=== PATIENT | male | born 1970 | race Caucasian/White ===

== ENCOUNTER 2019-05-30 17:37 | IRF | payer MEDICARE, MEDICAID, SELFPAY ==
--- NOTE | ~2019-05-30 | XR_ITS ---
EXAMINATION: XR chest 1V portable DATE: 05/31/2019 01:32 INDICATION: This of breath. Decreased level of consciousness. TECHNIQUE: frontal view of the chest was obtained. COMPARISON: None FINDINGS: Minimal biapical pleural-parenchymal scarring. No other airspace opacities, pleural effusion, pulmona ry edema or pneumothorax. The cardiomediastinal silhouette is normal. Visualized bones and soft tissu es are unremarkable. IMPRESSION: 1. No acute cardiopulmonary disease. Reviewed, dictated and finalized at location A. [facility]
[2019-05-30 17:35] VITALS: BMI 14.4
[2019-05-30 17:40] VITALS: BP 119/77; PULSE 112; RESP 18; TEMP 37.1; O2SAT 100
--- NOTE | 2019-05-30 20:14 | ADMGEN ---
This patient, Bradley Adkins, was admitted to [facility] Room 230-02. Patient/family oriented to hospital policies and general routines including ID bracelet, bed and alarms, visiting hours, pain management, procedures, bathroom and other care routines, personal items, smoking policy, room service/diet, and visiting hours. Valuables list has been completed. Information on how to activate the Rapid Response Team has been discussed. Patient/Family are encouraged to report perceived risks to care and to ask questions if they do not understand what they are told or what they should do.
[2019-05-30] MEDS: MIRTAZAPINE 30 MG TABLET PO (21:35)
[2019-05-30] MEDS: MORPHINE SULFATE 15 MG TABCR 30 MG PO (21:35)
[2019-05-30 21:43] VITALS: BP 94/68; PULSE 105; RESP 20; TEMP 36.9; O2SAT 99
[2019-05-31 00:23] LABS: Glucose Point of Care > 500 (65-105)
--- NOTE | 2019-05-31 00:35 | PC.NURSE ---
Pt midnight accucheck noted as HI . received order for stat glucose. lab called to come draw. awaiting results.
[2019-05-31 01:00] LABS: Glucose 615 mg/dL (75-110)
[2019-05-31 01:32] LABS: Alveolar/Arterial O2 Gradient 7.3 mmHg; Fractional Inspired Oxygen 21 %; HCO3 ABG 31.9 mEq/l (22.0-26.0); Oxygen Content ABG 11.8 %vol (16.0-22.0); Oxygen Saturation ABG 95.1 % (95.0-100.0); Oxyhemoglobin 92.2 % THb (90.0-100.0); PCO2 ABG 54.3 mmHg (35.0-45.0); PO2 ABG 77.4 mmHg (80.0-100.0); PO2 FiO2 Ratio Arterial Blood 3.69 %; pH ABG 7.387 (7.350-7.450)
[2019-05-31 01:33] LABS: Modified Allen's Test Pass; Site Drawn RIGHT RADIAL
[2019-05-31 01:34] LABS: Device ROOM AIR
[2019-05-31 01:49] LABS: Basophils Percent Auto 0.6 % (0.2-1.2); Eosinophils Absolute Auto 0.1 K/mm3 (0-0.3); Hematocrit 26.7 % (42.0-52.0); Immature Granulocyte Absolute 0.03 K/mm3 (0.00-0.031); Immature Granulocyte Percent A 0.6 % (0-0.5); Lymphocytes Percent Auto 16.2 % (18.3-44.2); Mean Corpuscular Hemoglobin 29.7 pg (26-34); Mean Corpuscular Volume 99.3 fl (80-100); Mean Platelet Volume 9.9 fl (7.4-10.4); Monocytes Absolute Auto 0.5 K/mm3 (0.1-0.6); Monocytes Percent Auto 10.7 % (2.6-8.5); Neutrophils Absolute Auto 3.5 K/mm3 (1.3-6.7); Neutrophils Percent Auto 69.9 % (45.5-73.1); Platelet Count Result 264 k/mm3 (150-375); Red Blood Count 2.69 M/mm3 (4.6-6.20); Red Cell Distribution Width 18.6 % (11.5-14.5)
[2019-05-31] MEDS: ALBUTEROL SULFATE (*SP) AEROSOL 1 PUFF 2 PUFF INHALATION (01:49)
[2019-05-31 01:51] LABS: Add Urine Microscopic? YES; Appearance Urine Clear (Clear); Bilirubin Urine Negative (Negative); Blood Urine Negative (Negative); Color Urine Straw (Yellow); Glucose Urine UA 3+ mg/dL (Negative); Ketones Urine Negative (Negative); Leukocyte Esterase Ur Negative LEU/UL (NEGATIVE); Nitrate Urine Negative (Negative); Protein Urine Negative (Negative); RBC Urine 0-2 /hpf (0-2); Specific Grav Ur 1.022 (1.001-1.035); Urobilinogen Urine Negative mg/dL (<2.0); WBC Urine 0-3 /hpf (0-3)
[2019-05-31 02:02] LABS: Lactic Acid Reflex 1.9 mmol/L (0.7-2.1)
[2019-05-31 02:09] LABS: Beta-Hydroxybutyrate/Acetoacetate 0.11 mmol/L (0.02-0.27)
[2019-05-31 02:12] LABS: Glucose Point of Care > 500 (65-105)
[2019-05-31 02:22] LABS: Blood Urea Nitrogen 21 mg/dL (9-20); Calcium 7.8 mg/dL (8.4-10.2); Carbon Dioxide 32 mmol/L (22-30); Chloride 92 mmol/L (98-107); Estimated CRCL calculation 90 ml/min; Estimated Glomerular Filt Rate > 60; Glucose 670 mg/dL (75-110); Magnesium 1.6 mg/dL (1.6-2.3); Phosphorus 4.1 mg/dL (2.5-4.5); Potassium 4.5 mmol/L (3.4-5.0); Sodium 131 mmol/L (137-145); Troponin I 0.029 ng/mL (0.000-0.034)
[2019-05-31] MEDS: SODIUM CHLORIDE 0.9% IV 1,000 ML 999 ML IV CONT (02:53)
--- NOTE | 2019-05-31 03:26 | PC.NURSE ---
Dr Pavon over to talk to staff regarding consult for patient. orders were entered per Dr Pavon's request for STAT ABG, troponin, lactic acid, cbc, bmp, phosporus, magnesium, beta-hydroxybutyrate, chest x ray, and UA with culture. a second critical glucose was called to floor while Dr Pavon here seeing pt. glucose was noted by lab at 670. iv was started and normal saline 500 mL bolus was started. Dr Pavon updated Dr Mcgee. Patient was moved to ICU bed 6 with a dx of hyperglycemia. Report was given to Leander HELLER. call placed to patient's spouse with no answer. message was left.
--- NOTE | 2019-05-31 18:03 | PC.NURSE ---
Patient received back to room 230 bed2 on 05/31/19 at [address] Mcgee notified of return, medications and treatment continued.
[2019-05-31 22:00] VITALS: BP 93/64; PULSE 88; RESP 17; TEMP 36.8; O2SAT 100
[2019-05-31] MEDS: MORPHINE SULFATE 15 MG TABCR 30 MG PO (22:17)
[2019-05-31] MEDS: MIRTAZAPINE 30 MG TABLET PO (22:19)
[2019-05-31] MEDS: GABAPENTIN 300 MG CAPSULE PO (22:19)
[2019-05-31 23:17] LABS: Glucose Point of Care 207 (65-105)
[2019-06-01 04:34] LABS: Glucose Point of Care 70 (65-105)
[2019-06-01 05:35] VITALS: BP 121/82; PULSE 78; RESP 18; TEMP 36.6; O2SAT 98
[2019-06-01 07:17] LABS: Glucose Point of Care 102 (65-105)
[2019-06-01 08:00] VITALS: PULSE 76; RESP 20; O2SAT 96
[2019-06-01] MEDS: GABAPENTIN 300 MG CAPSULE PO ×3 (09:56→16:43)
[2019-06-01] MEDS: PANTOPRAZOLE 40 MG TABLET PO (09:56)
[2019-06-01] MEDS: FERROUS SULFATE 324 MG TABLET PO (09:57)
[2019-06-01] MEDS: BISACODYL 5 MG TABLET EC PO (10:03)
[2019-06-01] MEDS: MORPHINE SULFATE 15 MG TABCR 30 MG PO ×2 (10:04→20:56)
[2019-06-01] MEDS: INSULIN GLARGINE (*BKC) 100 UNITS/ML 40 UNITS SUB-Q (10:08)
[2019-06-01 10:52] VITALS: BP 161/69; PULSE 74; RESP 21; TEMP 36.4; O2SAT 96
--- NOTE | 2019-06-01 10:55 | WPDREHABHP ---
H&P: HPI History of Present Illness Chief complaint: acute encephalopathy Narrative: Bradley Adkins is a 49 year old male HISTORY OF PRESENT ILLNESS: The patient's primary rehab impairment category is Miscellaneous /debility The etiologic diagnosis is status post hypoglycemia/coma I saw this patient [id number] on June 01, 2019 at 9:30 a.m. The patient is a 49-year-old white male with a past medical history of diabetes mellitus in the context of chronic alcoholic pancreatitis /insufficiency liver cirrhosis, gastroesophageal reflux disease grade D esophagitis with recurrent upper gastrointestinal bleed) chronic alcoholic pancreatitis, chronic obstructive pulmonary disease and hypertension who presented to local hospital after his found him unresponsive with blood glucose level of 20, he was recently admitted to the hospital from April 10 through April 14 for abdominal pain and vomiting. At this time he underwent an ERCP that revealed biliary ductal strictures and proximal dilatation. Mental stent was placed with plans for removal or exchange in 3 months. He was discharged home. Then he returned to the hospital on May 03 for increased abdominal pain and hyperglycemia. He was admitted for diabetic ketoacidosis with an initial blood glucose over 1000. He was placed on an insulin drip. He again was discharged home on May 18, 2019 despite recommendations for fci care. He then returned to the hospital and lumbar 2018 unresponsive and blood close of 20 as stated above. He was transferred to [facility] the same day and was admitted. Endocrinology was considered and consulted and they observe the patient blood glucoses difficult to manage because his carbohydrate intake is inconsistent due to his gastrointestinal issues. There isn't ideal regimen that works for him. They recommended starting him on Lantus 5 units b.i.d. and sliding scale NovoLog with blood glucose checks every 4 hours and recommended 150 gram of carbohydrates daily to be achieved with D5 solution. Endocrinology continue to follow him throughout his stay. And nasogastric tube was placed and he received supplemental nutrition this way and he was allowed and oral diet as tolerated. Palliative Care was consulted for pain management and his pain is now controlled on oral medications. He was transferred to the medical floor May 14, 2019. 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 his electrolytes are repeated as needed he did experience of fevers whether was no obvious source for infection. Chest x-ray was insignificant and the blood cultures were negative. His antibiotic regimen was de escalated to ceftriaxone and Flagyl for possible aspiration pneumonia. He completed a 5 day course of Augmentin and he has been afebrile. Repeat chest x-ray shows no infiltrates. The patient underwent a PEG tube placement on May 22, 2019 for a more permanent means of nutrition and blood glucose management. Tube feeding is at good with a goal which is O vital 1.2 at 50 cc/hour he is receiving an oral diabetic diet as well. His hypoglycemia has resolved the tube feeding. Endocrinology recommended NPH, 10 units b.i.d. at 7:00 a.m. and 7:00 p.m. and regular insulin 5 units b.i.d. at 7:00 a.m. and 7:00 p.m. as well as regular insulin but is sliding scale q.6 hours. If he is to be NPO for entities and he will need D5 and half normal saline at 125 cc/hour. The patient was discharged to our rehab on May 30, 2019 however had to be transferred to ICU because of the elevated sugars over close to 700 he was treated in our ICU overnight with the insulin drip and was rated 2 to come here when he came back yesterday the May 31, 2019 os in much better shape and much better electrolyte profile The patient is here and now working with therapy Therapy was initiated at the acute
[2019-06-01 12:15] LABS: Glucose Point of Care 100 (65-105)
[2019-06-01 12:58] VITALS: BMI 14.4
[2019-06-01 13:03] VITALS: PULSE 78
[2019-06-01] MEDS: NADOLOL 20 MG TABLET 40 MG PO (13:03)
[2019-06-01 14:00] VITALS: BP 117/80; PULSE 76; RESP 20; TEMP 36.1; O2SAT 96
--- NOTE | 2019-06-01 15:23 | PM.IMPN ---
Progress Note: A&P Assessment and Plan (1) Diabetes mellitus: Qualifiers: Diabetes mellitus type: type 2 Diabetes mellitus residential insulin use: with residential use Diabetes mellitus complication status: with hyperglycemia Qualified Code(s): E11.65 - Type 2 diabetes mellitus with hyperglycemia; Z79.4 - intermediate teacher (current) use of insulin Code(s): E11.9 - Type 2 diabetes mellitus without complications Status: Acute (2) S/P percutaneous endoscopic gastrostomy (PEG) tube placement: Code(s): Z93.1 - Gastrostomy status Status: Acute (3) Malnutrition: Code(s): E46 - Unspecified protein-calorie malnutrition Status: Acute (4) Tobacco dependence: Code(s): F17.200 - Nicotine dependence, unspecified, uncomplicated Status: Acute (5) Chronic pancreatitis: Code(s): K86.1 - Other chronic pancreatitis Status: Acute (6) H/O: HTN (hypertension): Code(s): Z86.79 - Personal history of other diseases of the circulatory system Status: Acute (7) GERD (gastroesophageal reflux disease): Code(s): K21.9 - Gastro-esophageal reflux disease without esophagitis Status: Acute (8) Depression: Code(s): F32.9 - Major depressive disorder, single episode, unspecified Status: Acute (9) COPD (chronic obstructive pulmonary disease): Code(s): J44.9 - Chronic obstructive pulmonary disease, unspecified Status: Acute (10) CHF (congestive heart failure): Code(s): I50.9 - Heart failure, unspecified Status: Acute (11) Alcoholic cirrhosis: Code(s): K70.30 - Alcoholic cirrhosis of liver without ascites Status: Acute Additional Plan Glucose reviewed on 06/01/2019. Glucose was 70 this morning. Glucose has been well controlled. We will back off the Lantus since this is probably too tight of control. Continue tube feedings. Keep GTube site clean. Oral diet as tolerated. Pain is controlled with current medications. No wheezing to suggest COPD exacerbation. Continue his other current medications. Will continue to follow along with you. Thank you so much for allowing me to be part of this patient's care. Subjective Interval history: Date of service: 06/01/19 49yo male here for rehab after extensive prolonged hospitalization and consulted for elevated glucose levels. Patient is walking 150 ft. Has chronic abdominal pain. Abdominal pain is well controlled with his current medications. Tolerating oral intake. No nausea or vomiting. He denies any chest pain or palpitations. Tolerating tube feedings. Exam Narrative: Exam Narrative: Gen -thin male in no acute distress who is nontoxic appearing sitting up in a chair Chest -few scattered rhonchi otherwise clear. CV - RRR S1/S2 Abd -soft. Mild epigastric tenderness. G-tube in place with mild erythema around the base. Ext -trace indy ankle and foot edema. Psych - Nml mood and affect Skin - Warm and dry Objective Data Vital Signs Vital Signs: Vital Signs - 24 hr 05/31/19 22:00 06/01/19 05:35 06/01/19 08:00 Temperature 98.3 F 97.9 F Pulse Rate 88 78 76 Respiratory Rate 17 18 20 Blood Pressure 93/64 L 121/82 Pulse Oximetry 100 98 96 06/01/19 13:03 06/01/19 14:00 Temperature 97.0 F L Pulse Rate 78 76 Respiratory Rate 20 Blood Pressure 117/80 Pulse Oximetry 96 Intake/Output Intake/Output: Intake & Output 05/29/19 05/30/19 05/31/19 06/01/19 23:59 23:59 23:59 23:59 Intake Total 500 440 Balance 500 440 Meds/Results Medications: Active Medications Generic Name Dose Route Start Last Admin Trade Name Freq PRN Reason Stop Dose Admin Al Hydrox/Mg Hydrox/Simethicone 30 ml 05/31/19 18:36 Mylanta PO Q4H PRN Heartburn Albuterol 2 puff 05/31/19 20:00 Proventil Hfa INHALATION QIDRT TREASURE Albuterol 2 puff 05/31/19 18:38 Proventil Hfa INHALATION QIDRT PRN Shortness Of Breath Lipase/Protease/Amyl
[2019-06-01 17:20] LABS: Glucose Point of Care 85 (65-105)
[2019-06-01] MEDS: ONDANSETRON HCL ODT 4 MG TABLET PO (17:46)
[2019-06-01] MEDS: MIRTAZAPINE 30 MG TABLET PO (20:55)
[2019-06-01 21:07] LABS: Glucose Point of Care 168 (65-105)
[2019-06-01] MEDS: ALBUTEROL SULFATE (*SP) AEROSOL 1 PUFF 2 PUFF INHALATION (21:38)
[2019-06-01 22:00] VITALS: BP 96/66; PULSE 84; RESP 17; TEMP 36.9; O2SAT 100
[2019-06-02 06:00] VITALS: BP 90/65; PULSE 70; RESP 18; TEMP 36.2; O2SAT 100
[2019-06-02] MEDS: GLUCOSE ORAL GEL 15 GM OF GLUCSE IN 37.5 GM TUBE PO (06:09)
[2019-06-02 06:55] LABS: Glucose Point of Care 29 (65-105)
[2019-06-02 06:56] LABS: Glucose Point of Care 44 (65-105)
[2019-06-02 07:39] LABS: Glucose Point of Care 60 (65-105)
[2019-06-02] MEDS: ALBUTEROL SULFATE (*SP) AEROSOL 1 PUFF 2 PUFF INHALATION ×2 (08:46→20:56)
--- NOTE | 2019-06-02 09:01 | PC.NURSE ---
Urine cx and MRSA nare swab are both negative. Dr. Priya hurst.
[2019-06-02 10:27] VITALS: PULSE 70
[2019-06-02] MEDS: GABAPENTIN 300 MG CAPSULE PO ×3 (10:27→18:07)
[2019-06-02] MEDS: FERROUS SULFATE 324 MG TABLET PO (10:27)
[2019-06-02] MEDS: NADOLOL 20 MG TABLET 40 MG PO (10:27)
[2019-06-02] MEDS: PANTOPRAZOLE 40 MG TABLET PO (10:28)
[2019-06-02] MEDS: MORPHINE SULFATE 15 MG TABCR 30 MG PO ×2 (10:31→20:09)
[2019-06-02] MEDS: BISACODYL 5 MG TABLET EC PO (10:32)
[2019-06-02] MEDS: INSULIN GLARGINE (*BKC) 100 UNITS/ML 20 UNITS SUB-Q (10:32)
[2019-06-02 10:46] LABS: Glucose Point of Care 203 (65-105)
--- NOTE | 2019-06-02 11:22 | PM.IMPN ---
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) use of insulin Code(s): E11.9 - Type 2 diabetes mellitus without complications Status: Acute (2) S/P percutaneous endoscopic gastrostomy (PEG) tube placement: Code(s): Z93.1 - Gastrostomy status Status: Acute (3) Malnutrition: Code(s): E46 - Unspecified protein-calorie malnutrition Status: Acute (4) Tobacco dependence: Code(s): F17.200 - Nicotine dependence, unspecified, uncomplicated Status: Acute (5) Chronic pancreatitis: Code(s): K86.1 - Other chronic pancreatitis Status: Acute (6) H/O: HTN (hypertension): Code(s): Z86.79 - Personal history of other diseases of the circulatory system Status: Acute (7) GERD (gastroesophageal reflux disease): Code(s): K21.9 - Gastro-esophageal reflux disease without esophagitis Status: Acute (8) Depression: Code(s): F32.9 - Major depressive disorder, single episode, unspecified Status: Acute (9) COPD (chronic obstructive pulmonary disease): Code(s): J44.9 - Chronic obstructive pulmonary disease, unspecified Status: Acute (10) CHF (congestive heart failure): Code(s): I50.9 - Heart failure, unspecified Status: Acute (11) Alcoholic cirrhosis: Code(s): K70.30 - Alcoholic cirrhosis of liver without ascites Status: Acute Additional Plan 06/01/19 -- Glucose reviewed on 06/01/2019. Glucose was 70 this morning. Glucose has been well controlled. We will back off the Lantus since this is probably too tight of control. Continue tube feedings. Keep GTube site clean. Oral diet as tolerated. Pain is controlled with current medications. No wheezing to suggest COPD exacerbation. Continue his other current medications. Will continue to follow along with you. Thank you so much for allowing me to be part of this patient's care. 06/02/19 -- Glucose reviewed on 06/02/19. Glucose dropped to 29 this morning. Will cut Lantus back to 20U and give today only if glucose climbs >150 (RN notified). He was on NPH 15U BID and Regular 5U BID on admission. Continue to adjust insulin regiment as needed. BP soft so will place parameters on the Nadolol. Subjective Interval history: Date of service: 06/02/19 49yo male here for rehab after extensive prolonged hospitalization and consulted for elevated glucose levels. Patient's glucose dropped to 29 this morning. Patient states he was up and just felt weak; no diaphoresis or other symptoms. Eating well. Glucose improved with treatment. He is walking up to 150 feet x2. No CP or SOB. Tolerating tube feedings. Exam Narrative: Exam Narrative: Gen - NARD sitting up in a chair Chest - CTA bilat, nml RR CV - RRR S1/S2 Abd -soft. mild abd pain to palpation, +BS. G-tube dressing clean and dry. Ext -no pedal edema Psych - Nml mood and affect Skin - Warm and dry Objective Data Vital Signs Vital Signs: Vital Signs - 24 hr 06/01/19 13:03 06/01/19 14:00 06/01/19 22:00 Temperature 97.0 F L 98.5 F Pulse Rate 78 76 84 Respiratory Rate 20 17 Blood Pressure 117/80 96/66 L Pulse Oximetry 96 100 06/02/19 06:00 06/02/19 10:27 Temperature 97.2 F L Pulse Rate 70 70 Respiratory Rate 18 Blood Pressure 90/65 L Pulse Oximetry 100 Intake/Output Intake/Output: Intake & Output 05/30/19 05/31/19 06/01/19 06/02/19 23:59 23:59 23:59 23:59 Intake Total 500 1640 200 Balance 500 1640 200 Meds/Results Medications: Active Medications Generic Name Dose Route Start Last Admin Trade Name Freq PRN Reason Stop Dose Admin Al Hydrox/Mg Hydrox/Simethicone 30 ml 05/31/19 18:36 M
--- NOTE | 2019-06-02 12:23 | RPD ---
INDIVIDUALIZED PLAN OF CARE FOR Bradley Adkins Brief Synthesis of Pre-Admission Screen, Post-Admission Evaluation and Therapy Evaluations: The patient presents to rehab with hypoglycemia with coma. The patient requires physician services for medical oversight, management of post-op complications in setting of present comorbidities, uncontrolled diabetes mellitus, and pain management. The patient requires nursing services for anticoagulation therapy, diabetes training, DVT prophylactics, infection protection, medication management and education, pressure relief, and wound care. Comorbidities include: PEG tube placement, re-feeding syndrome, hypophosphatemia, hypomagnesmia, hypokalemia, hyponatremia, anemia, aspiration pneumonia, pancreatitis, acute pain, pancreatic insufficiency, cirrhosis, esophagitis, splenic vein thrombosis, depression, common bile duct stricture, diabetes mellitus, severe protein calorie malnutrition, fever . Deficits include:ADLs, Balance, Endurance, Family Training/Education, Mobility, Pain Management, ROM, Safety, Strength,Transfers Wood Room Hand/Case Management for: Discharge Planning and Patient/Family Counseling Physical Therapy: 5 days per week for 90 minutes. Treatments may include: Therapeutic Exercise, Gait Training, Neuromuscular Re-education, Transfer Training, Community Reintegration, Bed Mobility, Patient/Family Education, Wheelchair Mobility Group Therapy/Concurrent Therapy Rationales: -Improve attention span during functional activities in a distracted environment. -Enhance problem solving and/or adequate judgment skills during functional activities in a distracted environment. -Promote increased safety awareness in a distracted environment to reduce fall risk with functional tasks, transfers, and ambulation to allow a more safe, self-sufficient return to the home environment. -Improve dynamic balance skills to promote safety and independence with functional activities in a distracted environment for maximum gain. Occupational Therapy: 5 days per week for 90 minutes. Treatments may include: Therapeutic Exercise, Therapeutic Activity, Cognitive Training, Self-Care Transfer Training, Community Reintegration, Home Management, Patient/Family Education, Wheelchair Mobility Training, Energy Conservation Training Group Therapy/Concurrent Therapy Rationales: -Allow therapist to observe and teach generalization and carry-over of skills learned in individual therapy. -Enhance problem solving and sequencing skills during therapeutic activities in a distracted environment. -Promote increased safety awareness in a realistic setting to reduce fall risk with functional tasks due to visual and verbal distractions. -Increase functional level with ADLs, ADL transfers and use of adaptive equipment through therapeutic activities with others while promoting safety to allow a more safe, self-sufficient return home. Medical Prognosis: Good Anticipated Length of Stay: 10 days Rehab Goals: Eating Goal: 06-Independent Oral Hygiene Goal: 06-Independent Toileting Hygiene Goal: 06-Independent Shower/Bathe Self Goal: 06-Independent Upper Body Dressing Goal: 06-Independent Lower Body Dressing Goal: 06-Independent Putting On/Taking Off Footwear Goal: 06-Independent Rolling Left and Right Goal: 06-Independent Sit to Lying Goal: 06-Independent Lying to Sitting on Side of Bed Goal: 06-Independent Sit to Stand Goal: 06-Independent Chair/[id number]-dh-[id number] Transfer Goal: 06-Independent Toilet Transfer Goal: 06-Independent Car Transfer Goal: 06-Independent Walk 10' Goal: 06-Independent Walk 50' with Two Turns Goal: 06-Independent Walk 150' Goal: 06-Independent Walk 10' on Uneven Surface Goal: 06-Independent 1 Step (Curb) Goal: 06-Independent 4 Steps Goal: 06-Independent 12 Steps Goal Score: 06-Independent Picking Up Object Goal: 06-Independent Wheel 50' with Two Turns Score: 06-Independent Wheel 150' Goal: 06-Independent Anticipated discharge de
[2019-06-02] MEDS: ONDANSETRON HCL ODT 4 MG TABLET PO (13:09)
[2019-06-02 13:19] LABS: Glucose Point of Care 74 (65-105)
--- NOTE | 2019-06-02 13:31 | WPDNEURORHBP ---
Subjective Interval history: patient has had hypoglycemia earlier today without any significant consequences the hospitalist is following have made changes in his insulin requirement, he is a brittle diabetic and has sugars have been going all over the board and according to endocrinology from the other hospital there is no regimen which perfectly fits his needs because of his pancreatic insufficiency Review of Systems Review of Systems: All systems reviewed & are unremarkable except as noted in HPI and below Functional Status Ambulation Ability Ability to Ambulate 10 Feet: Standby Assistance Ability to Ambulate 50 Feet With 2 Turns: Standby Assistance Ability to Ambulate 150 Feet: Standby Assistance Ambulation Assistive Devices: Walker, Wheeled Transfers Ability Ability to Transfer In/Out of Chair: Independent Exam Const: General: comfortable and no acute distress HENMT: Other: normal Eyes: General: appearance normal, both eyes and all related structures Neck: Neck: supple and no JVD Resp: Effort & Inspection: normal respiratory effort Auscultation: clear to auscultation bilaterally Cardio: Rate: regular rate Rhythm: regular rhythm GI: GI Palp: Yes soft Percussion: Yes normal to percussion Auscultation: normal bowel sounds : Male General Exam: Yes normal external exam Skin: General skin exam: normal color and no rashes or lesions noted Neuro: Other: generalized weakness with evidence of peripheral neuropathy needing assistance in all the activities of daily living Extrem: General: normal to inspection and normal exam except as noted Objective Data Vital Signs Vital Signs: Vital Signs - 24 hr 06/01/19 14:00 06/01/19 22:00 06/02/19 06:00 Temperature 36.1 C L 36.9 C 36.2 C L Pulse Rate 76 84 70 Respiratory Rate 20 17 18 Blood Pressure 117/80 96/66 L 90/65 L Pulse Oximetry 96 100 100 06/02/19 10:27 Temperature Pulse Rate 70 Respiratory Rate Blood Pressure Pulse Oximetry Intake/Output Intake/Output: Intake & Output 05/30/19 05/31/19 06/01/19 06/02/19 23:59 23:59 23:59 23:59 Intake Total 500 1640 200 Balance 500 1640 200 Meds/Results Medications: Active Medications Generic Name Dose Route Start Last Admin Trade Name Freq PRN Reason Stop Dose Admin Al Hydrox/Mg Hydrox/Simethicone 30 ml 05/31/19 18:36 Mylanta PO Q4H PRN Heartburn Albuterol 2 puff 12/11/19 18:38 Proventil Hfa INHALATION QIDRT PRN Shortness Of Breath Albuterol 2 puff 06/02/19 10:52 Proventil Hfa INHALATION QIDRT PRN Shortness Of Breath Or Wheezing Lipase/Protease/Amylase 1 cap 05/31/19 18:[address] 12,000 Units Capsule PO PRN PRN snacks and meals Bisacodyl 5 mg 06/01/19 09:00 06/02/19 10:32 Dulcolax Tab PO 5 mg QAM TREASURE Administration Budesonide/Formoterol Fumarate 2 puff 05/31/19 20:00 06/02/19 08:46 Symbicort 160-4.5 Mcg (*Sp) Inhaler INHALATION 2 puff Q12HRT TREASURE Administration Dextrose 12.5 gm 05/31/19 19:02 Dextrose 50% Syringe IV PUSH PRN PRN Hypoglycemia Protocol Ergocalciferol 50,000 unit 06/06/19 09:00 Drisdol PO Tu@0900 TREASURE Ferrous Sulfate 324 mg 06/01/19 08:00 06/02/19 10:27 Ferrous Sulfate PO 324 mg DAILY@0800 TREASURE Administration Gabapentin 300 mg 05/31/19 21:25 06/02/19 13:09 Neurontin PO 300 mg TID TREASURE Administration Glucagon 1 mg 05/31/19 19:02 Glucagon For Inj IM PRN PRN Hypoglycemia Protocol Glucose 15 gm 05/31/19 19:02 06/02/19 06:09 Glutose 15 PO 15 gm PRN PRN Administration Hypoglycemia Protocol Dextrose 1,000 mls @ 100 mls/hr 05/31/19 19:02 Dextrose 5% 1,000 Ml IVPB PRN PRN Hypoglycemia Protocol Insulin Glargine 20 units 06/02/19 09:00 06/02/19 10:32 Lantus SUB-Q 20 units DAILY TREASURE Administration Mirtazapine 30 mg 05/31/19 21:30 06/01/19 20:55 Remeron
--- NOTE | 2019-06-02 13:49 | PCDIET ---
Nutrition Follow-Up Complete: Nutrition Diagnosis: Underweight related to history of significant weight loss as evidenced by BMI of 14.4. Nutrition Goal: Intakes >75%, tube feeding tolerance, glucose levels <150mg/dL Goal partly met. Patient tolerating Glucerna 1.2 tube feedings at 40mL/hr and eating 75-100% of meals + Glucerna Shakes TID. Glucose was 203mg/dL earlier this date. Last recorded weight is 43 kg. Recommend obtaining daily weights. Bowel Motility: Last documented bowel movement on 05/30/19. Labs Reviewed: Glu (203) Meds Noted: Creon, Dulcolax, Drisdol, Ferrous Sulfate, Lantus, Roxicodone, Protonix Additional Notes: Patient with hypoglycemia earlier today; Lantus being decreased. No documented skin breakdown. Patient stated surgeon previously recommended small, frequent meals. Encouraged patient to request snacks between meals or save Glucerna Shake for between meals. Discussed this will likely optimize glucose levels, as well. Tube feedings via jejunostomy. No recommended diet changes at this time due to hypoglycemia. Will continue to monitor with same goals. Nutrition Monitoring and Evaluation: Follow up every Wednesday/Wednesday.
[2019-06-02 14:00] VITALS: BP 90/64; PULSE 81; RESP 75; TEMP 37; O2SAT 100
[2019-06-02 18:15] LABS: Glucose Point of Care 86 (65-105)
[2019-06-02] MEDS: MIRTAZAPINE 30 MG TABLET PO (20:10)
[2019-06-02 22:00] VITALS: BP 79/45; PULSE 83; RESP 16; TEMP 36.8; O2SAT 94
[2019-06-02 22:30] LABS: Glucose Point of Care 109 (65-105)
[2019-06-03 00:19] LABS: Glucose Point of Care 47 (65-105)
[2019-06-03 00:51] LABS: Glucose Point of Care 44 (65-105)
[2019-06-03 01:26] LABS: Glucose Point of Care 40 (65-105)
[2019-06-03 01:31] LABS: Glucose Point of Care 51 (65-105)
[2019-06-03 02:00] LABS: Glucose Point of Care 90 (65-105)
[2019-06-03 05:12] LABS: Glucose Point of Care 147 (65-105)
[2019-06-03 05:58] VITALS: BP 72/47; PULSE 78; RESP 16; TEMP 36; O2SAT 95
[2019-06-03 06:43] LABS: Glucose Point of Care 201 (65-105)
[2019-06-03 07:08] VITALS: BP 95/60
[2019-06-03] MEDS: PANTOPRAZOLE 40 MG TABLET PO (09:43)
[2019-06-03] MEDS: FERROUS SULFATE 324 MG TABLET PO (09:43)
[2019-06-03] MEDS: GABAPENTIN 300 MG CAPSULE PO ×3 (09:43→16:32)
[2019-06-03] MEDS: MORPHINE SULFATE 15 MG TABCR 30 MG PO ×2 (09:50→20:57)
[2019-06-03] MEDS: BISACODYL 5 MG TABLET EC PO (09:50)
[2019-06-03] MEDS: INSULIN GLARGINE (*BKC) 100 UNITS/ML 20 UNITS SUB-Q (09:50)
[2019-06-03 11:02] LABS: Glucose Point of Care 201 (65-105)
--- NOTE | 2019-06-03 13:35 | PM.IMPN ---
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 Diabetes mellitus type: type 2 Qualified Code(s): E11.65 - Type 2 diabetes mellitus with hyperglycemia; Z79.4 - middle or intermediate school principal (current) use of insulin Code(s): E11.9 - Type 2 diabetes mellitus without complications Status: Acute (2) S/P percutaneous endoscopic gastrostomy (PEG) tube placement: Code(s): Z93.1 - Gastrostomy status Status: Acute (3) Malnutrition: Code(s): E46 - Unspecified protein-calorie malnutrition Status: Acute (4) Tobacco dependence: Code(s): F17.200 - Nicotine dependence, unspecified, uncomplicated Status: Acute (5) Chronic pancreatitis: Code(s): K86.1 - Other chronic pancreatitis Status: Acute (6) H/O: HTN (hypertension): Code(s): Z86.79 - Personal history of other diseases of the circulatory system Status: Acute (7) GERD (gastroesophageal reflux disease): Code(s): K21.9 - Gastro-esophageal reflux disease without esophagitis Status: Acute (8) Depression: Code(s): F32.9 - Major depressive disorder, single episode, unspecified Status: Acute (9) COPD (chronic obstructive pulmonary disease): Code(s): J44.9 - Chronic obstructive pulmonary disease, unspecified Status: Acute (10) CHF (congestive heart failure): Code(s): I50.9 - Heart failure, unspecified Status: Acute (11) Alcoholic cirrhosis: Code(s): K70.30 - Alcoholic cirrhosis of liver without ascites Status: Acute Additional Plan 06/01/19 -- Glucose reviewed on 06/01/2019. Glucose was 70 this morning. Glucose has been well controlled. We will back off the Lantus since this is probably too tight of control. Continue tube feedings. Keep GTube site clean. Oral diet as tolerated. Pain is controlled with current medications. No wheezing to suggest COPD exacerbation. Continue his other current medications. Will continue to follow along with you. Thank you so much for allowing me to be part of this patient's care. 06/02/19 -- Glucose reviewed on 06/02/19. Glucose dropped to 29 this morning. Will cut Lantus back to 20U and give today only if glucose climbs >150 (RN notified). He was on NPH 15U BID and Regular 5U BID on admission. Continue to adjust insulin regiment as needed. BP soft so will place parameters on the Nadolol. 06/03/19 -- Glucose reviewed on 06/03/19. Will stop lantus and change to mornng Levemir which will wear off before bedtime. Hold Nadolol. May need to cut back pain meds if BP remains soft. Subjective Interval history: Date of service: 06/03/19 49yo male here for rehab after extensive prolonged hospitalization and consulted for elevated glucose levels. Patient's glucose dropped to 40 this morning at 1am. BP dropped this morning to 72/47. Patietn felt weak, lightheaded and fatigued. He has been eating well. No issues tolerating the TF although he feels full often. Exam Narrative: Exam Narrative: Gen - NARD sitting up in a chair Chest - distant BS CV - RRR S1/S2 Abd -soft. ND. GT site dressing with small yellowish stain Ext -no pedal edema Psych - Nml mood and affect Skin - Warm and dry Objective Data Vital Signs Vital Signs: Vital Signs - 24 hr 06/02/19 14:00 06/02/19 22:00 06/03/19 05:58 Temperature 98.6 F 98.3 F 96.8 F L Pulse Rate 81 83 78 Respiratory Rate 75 H 16 16 Blood Pressure 90/64 L 79/45 L 72/47 L Pulse Oximetry 100 94 95 06/03/19 07:08 Temperature Pulse Rate Respiratory Rate Blood Pressure 95/60 L Pulse Oximetry Intake/Output Intake/Output: Intake & Output 05/31/19 06/01/19 06/02/19 06/03/19 23:59 23:59 23:59 23:59 Intake Total 500 1640 680 480 Balance 500 1640 680 480 Meds/Results Medications: Active Medications Generic Name Dose Ro
[2019-06-03 14:00] VITALS: BP 104/67; PULSE 76; RESP 17; TEMP 36.6; O2SAT 100
--- NOTE | 2019-06-03 16:32 | WPDNEURORHBP ---
Subjective Interval history: apart from the fact that the patient's diabetic status remains at basis poorly controlled which is being followed by our colleague from the hospital team patient's encephalopathy and generalized weakness is improved Review of Systems Review of Systems: All systems reviewed & are unremarkable except as noted in HPI and below Functional Status Ambulation Ability Ability to Ambulate 10 Feet: Contact Guard Ability to Ambulate 50 Feet With 2 Turns: Contact Guard Ability to Ambulate 150 Feet: Contact Guard Ambulation Assistive Devices: Walker, Wheeled Transfers Ability Ability to Transfer In/Out of Chair: Independent Exam Const: General: comfortable and no acute distress HENMT: Ears: TM's normal bilaterally Eyes: General: appearance normal, both eyes and all related structures Neck: Neck: supple and no JVD Resp: Effort & Inspection: normal respiratory effort Auscultation: clear to auscultation bilaterally Cardio: Rate: regular rate Rhythm: regular rhythm GI: GI Palp: Yes soft Auscultation: normal bowel sounds Skin: General skin exam: normal color and no rashes or lesions noted Neuro: Other: encephalopathy in general weakness is improving Extrem: General: normal to inspection and normal exam except as noted Objective Data Vital Signs Vital Signs: Vital Signs - 24 hr 06/02/19 22:00 06/03/19 05:58 06/03/19 07:08 Temperature 36.8 C 36.0 C L Pulse Rate 83 78 Respiratory Rate 16 16 Blood Pressure 79/45 L 72/47 L 95/60 L Pulse Oximetry 94 95 06/03/19 14:00 Temperature 36.6 C Pulse Rate 76 Respiratory Rate 17 Blood Pressure 104/67 Pulse Oximetry 100 Intake/Output Intake/Output: Intake & Output 05/31/19 06/01/19 06/02/19 06/03/19 23:59 23:59 23:59 23:59 Intake Total 500 1640 1580 930 Balance 500 1640 1580 930 Meds/Results Medications: Active Medications Generic Name Dose Route Start Last Admin Trade Name Freq PRN Reason Stop Dose Admin Al Hydrox/Mg Hydrox/Simethicone 30 ml 05/31/19 18:36 Mylanta PO Q4H PRN Heartburn Albuterol 2 puff 05/31/19 18:38 06/02/19 20:56 Proventil Hfa INHALATION 2 puff QIDRT PRN Administration Shortness Of Breath Albuterol 2 puff 06/02/19 10:52 Proventil Hfa INHALATION QIDRT PRN Shortness Of Breath Or Wheezing Lipase/Protease/Amylase 1 cap 05/31/19 18:[address] 12,000 Units Capsule PO PRN PRN snacks and meals Bisacodyl 5 mg 06/01/19 09:00 06/03/19 09:50 Dulcolax Tab PO 5 mg QAM TREASURE Administration Budesonide/Formoterol Fumarate 2 puff 05/31/19 20:00 06/03/19 08:07 Symbicort 160-4.5 Mcg (*Sp) Inhaler INHALATION 2 puff Q12HRT TREASURE Administration Dextrose 12.5 gm 05/31/19 19:02 Dextrose 50% Syringe IV PUSH PRN PRN Hypoglycemia Protocol Ergocalciferol 50,000 unit 06/06/19 09:00 Drisdol PO Tu@0900 TREASURE Ferrous Sulfate 324 mg 06/01/19 08:00 06/03/19 09:43 Ferrous Sulfate PO 324 mg DAILY@0800 TREASURE Administration Gabapentin 300 mg 05/31/19 21:25 06/03/19 16:32 Neurontin PO 300 mg TID TREASURE Administration Glucagon 1 mg 05/31/19 19:02 Glucagon For Inj IM PRN PRN Hypoglycemia Protocol Glucose 15 gm 05/31/19 19:02 06/02/19 06:09 Glutose 15 PO 15 gm PRN PRN Administration Hypoglycemia Protocol Dextrose 1,000 mls @ 100 mls/hr 05/31/19 19:02 Dextrose 5% 1,000 Ml IVPB PRN PRN Hypoglycemia Protocol Insulin Detemir 10 units 06/04/19 09:00 Levemir SUB-Q QAM TREASURE Mirtazapine 30 mg 05/31/19 21:30 06/02/19 20:10 Remeron PO 30 mg HS TREASURE Administration Morphine Sulfate 30 mg 05/31/19 21:00 06/03/19 09:50 Ms Contin PO 30 mg Q12HR TREASURE Administration Nadolol 40 mg 06/01/19 09:00 06/02/19 10:27 Corgard PO 40 mg QAM TREASURE Administration Nicotine 1 patch 05/31/19 19:10 06/03/19 09:47 Aaron Wilder
[2019-06-03 16:53] LABS: Glucose Point of Care 183 (65-105)
[2019-06-03] MEDS: MIRTAZAPINE 30 MG TABLET PO (20:57)
[2019-06-03 22:00] VITALS: BP 86/56; PULSE 84; RESP 20; TEMP 37; O2SAT 100
[2019-06-03 22:28] LABS: Glucose Point of Care 203 (65-105)
[2019-06-04 02:37] LABS: Glucose Point of Care 144 (65-105)
[2019-06-04 06:00] VITALS: BP 86/57; PULSE 75; RESP 16; TEMP 36.4; O2SAT 100
[2019-06-04 06:51] LABS: Glucose Point of Care 78 (65-105)
[2019-06-04] MEDS: GABAPENTIN 300 MG CAPSULE PO ×3 (09:39→18:31)
[2019-06-04] MEDS: FERROUS SULFATE 324 MG TABLET PO (09:39)
[2019-06-04] MEDS: PANTOPRAZOLE 40 MG TABLET PO (09:40)
[2019-06-04] MEDS: BISACODYL 5 MG TABLET EC PO (09:43)
[2019-06-04] MEDS: MORPHINE SULFATE 15 MG TABCR 30 MG PO ×2 (09:43→21:06)
[2019-06-04] MEDS: INSULIN DETEMIR 100 UNITS/ML 10 UNITS SUB-Q (10:01)
[2019-06-04 11:46] LABS: Glucose Point of Care 311 (65-105)
[2019-06-04 14:00] VITALS: BP 103/61; PULSE 77; RESP 16; TEMP 36.6; O2SAT 100
--- NOTE | 2019-06-04 15:53 | PM.IMPN ---
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 of insulin Code(s): E11.9 - Type 2 diabetes mellitus without complications Status: Acute (2) S/P percutaneous endoscopic gastrostomy (PEG) tube placement: Code(s): Z93.1 - Gastrostomy status Status: Acute (3) Malnutrition: Code(s): E46 - Unspecified protein-calorie malnutrition Status: Acute (4) Tobacco dependence: Code(s): F17.200 - Nicotine dependence, unspecified, uncomplicated Status: Acute (5) Chronic pancreatitis: Code(s): K86.1 - Other chronic pancreatitis Status: Acute (6) H/O: HTN (hypertension): Code(s): Z86.79 - Personal history of other diseases of the circulatory system Status: Acute (7) GERD (gastroesophageal reflux disease): Code(s): K21.9 - Gastro-esophageal reflux disease without esophagitis Status: Acute (8) Depression: Code(s): F32.9 - Major depressive disorder, single episode, unspecified Status: Acute (9) COPD (chronic obstructive pulmonary disease): Code(s): J44.9 - Chronic obstructive pulmonary disease, unspecified Status: Acute (10) CHF (congestive heart failure): Code(s): I50.9 - Heart failure, unspecified Status: Acute (11) Alcoholic cirrhosis: Code(s): K70.30 - Alcoholic cirrhosis of liver without ascites Status: Acute Additional Plan 06/01/19 -- Glucose reviewed on 06/01/2019. Glucose was 70 this morning. Glucose has been well controlled. We will back off the Lantus since this is probably too tight of control. Continue tube feedings. Keep GTube site clean. Oral diet as tolerated. Pain is controlled with current medications. No wheezing to suggest COPD exacerbation. Continue his other current medications. Will continue to follow along with you. Thank you so much for allowing me to be part of this patient's care. 06/02/19 -- Glucose reviewed on 06/02/19. Glucose dropped to 29 this morning. Will cut Lantus back to 20U and give today only if glucose climbs >150 (RN notified). He was on NPH 15U BID and Regular 5U BID on admission. Continue to adjust insulin regiment as needed. BP soft so will place parameters on the Nadolol. 06/03/19 -- Glucose reviewed on 06/03/19. Will stop lantus and change to mornng Levemir which will wear off before bedtime. Hold Nadolol. May need to cut back pain meds if BP remains soft. 06/04/19 --glucose reviewed on 06/04/2019. Glucose stable overnight. Glucose higher today so will advance the Levemir that he gets once in the morning. Will advance slowly and continue to monitor frequently. Nadolol on hold. Monitor blood pressure closely. May need to wean narcotics. Subjective Interval history: Date of service: 06/04/19 49yo male here for rehab after extensive prolonged hospitalization and consulted for elevated glucose levels. No issues overnight. Blood pressure soft but patient was asymptomatic. Glucose elevated but with wide fluctuation. No hypoglycemic events. He did have an episode of urine incontinence but this is not uncommon for him. Normal bowel movements. Eating well. Exam Narrative: Exam Narrative: Gen - NARD lying in bed Chest -clear to auscultation bilaterally. Normal respiratory rate. CV - RRR S1/S2 Abd -soft. ND. GT site dressing is clean, dry and intact Ext -trace edema noted in feet. Psych - Nml mood and affect; in good spirits Skin - Warm and dry Objective Data Vital Signs Vital Signs: Vital Signs - 24 hr 06/03/19 22:00 06/04/19 06:00 06/04/19 14:00 Temperature 98.6 F 97.6 F 97.8 F Pulse Rate 84 75 77 Respiratory Rate 20 16 16 Blood Pressure 86/56 L
[2019-06-04 17:01] LABS: Glucose Point of Care 295 (65-105)
[2019-06-04] MEDS: MIRTAZAPINE 30 MG TABLET PO (21:06)
[2019-06-04 21:25] VITALS: BP 92/61; PULSE 87; RESP 16; TEMP 36.7; O2SAT 96
[2019-06-04 21:26] LABS: Glucose Point of Care 254 (65-105)
[2019-06-05 01:46] LABS: Glucose Point of Care 332 (65-105)
[2019-06-05 01:51] VITALS: BP 98/56
[2019-06-05 04:45] LABS: Hematocrit 27.2 % (42.0-52.0); Hemoglobin 8.5 g/dL (14.0-18.0); Mean Corpuscular HGB Conc 31.3 g/dl (32-36); Mean Corpuscular Hemoglobin 30.2 pg (26-34); Mean Corpuscular Volume 96.8 fl (80-100); Mean Platelet Volume 9.2 fl (7.4-10.4); Platelet Count Result 199 k/mm3 (150-375); Red Blood Count 2.81 M/mm3 (4.6-6.20); Red Cell Distribution Width 18.2 % (11.5-14.5)
[2019-06-05 05:06] LABS: Blood Urea Nitrogen 12 mg/dL (9-20); Calcium 8.1 mg/dL (8.4-10.2); Carbon Dioxide 28 mmol/L (22-30); Estimated CRCL calculation 76 ml/min; Estimated Glomerular Filt Rate > 60; Glucose 302 mg/dL (75-110); Sodium 133 mmol/L (137-145)
[2019-06-05 05:45] LABS: Chloride 99 mmol/L (98-107); Potassium 4.1 mmol/L (3.4-5.0)
[2019-06-05 06:00] VITALS: BP 99/69; PULSE 76; RESP 20; TEMP 36.3; O2SAT 98
[2019-06-05 07:28] LABS: Glucose Point of Care 227 (65-105)
[2019-06-05] MEDS: FERROUS SULFATE 324 MG TABLET PO (09:22)
[2019-06-05] MEDS: GABAPENTIN 300 MG CAPSULE PO ×3 (09:23→17:35)
[2019-06-05] MEDS: MORPHINE SULFATE 15 MG TABCR 30 MG PO ×2 (09:23→20:15)
[2019-06-05] MEDS: INSULIN DETEMIR 100 UNITS/ML 14 UNITS SUB-Q (09:23)
[2019-06-05] MEDS: BISACODYL 5 MG TABLET EC PO (09:23)
[2019-06-05] MEDS: PANTOPRAZOLE 40 MG TABLET PO (09:24)
--- NOTE | 2019-06-05 09:31 | PCDIET ---
RN phoned re: increased insulin requirements and possible tube feeding adjustment. Recommend reducing Glucerna 1.2 to 10 hours overnight to promote glucose control, given good oral intake throughout the day (75-100% of most meals). Once patient achieving weight gain, may consider discontinuing tube feedings altogether.
--- NOTE | 2019-06-05 11:18 | PM.IMPN ---
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 Code(s): E11.9 - Type 2 diabetes mellitus without complications Status: Acute (2) S/P percutaneous endoscopic gastrostomy (PEG) tube placement: Code(s): Z93.1 - Gastrostomy status Status: Acute (3) Malnutrition: Code(s): E46 - Unspecified protein-calorie malnutrition Status: Acute (4) Tobacco dependence: Code(s): F17.200 - Nicotine dependence, unspecified, uncomplicated Status: Acute (5) Chronic pancreatitis: Code(s): K86.1 - Other chronic pancreatitis Status: Acute (6) H/O: HTN (hypertension): Code(s): Z86.79 - Personal history of other diseases of the circulatory system Status: Acute (7) GERD (gastroesophageal reflux disease): Code(s): K21.9 - Gastro-esophageal reflux disease without esophagitis Status: Acute (8) Depression: Code(s): F32.9 - Major depressive disorder, single episode, unspecified Status: Acute (9) COPD (chronic obstructive pulmonary disease): Code(s): J44.9 - Chronic obstructive pulmonary disease, unspecified Status: Acute (10) CHF (congestive heart failure): Code(s): I50.9 - Heart failure, unspecified Status: Acute (11) Alcoholic cirrhosis: Code(s): K70.30 - Alcoholic cirrhosis of liver without ascites Status: Acute Additional Plan 06/01/19 -- Glucose reviewed on 06/01/2019. Glucose was 70 this morning. Glucose has been well controlled. We will back off the Lantus since this is probably too tight of control. Continue tube feedings. Keep GTube site clean. Oral diet as tolerated. Pain is controlled with current medications. No wheezing to suggest COPD exacerbation. Continue his other current medications. Will continue to follow along with you. Thank you so much for allowing me to be part of this patient's care. 06/02/19 -- Glucose reviewed on 06/02/19. Glucose dropped to 29 this morning. Will cut Lantus back to 20U and give today only if glucose climbs >150 (RN notified). He was on NPH 15U BID and Regular 5U BID on admission. Continue to adjust insulin regiment as needed. BP soft so will place parameters on the Nadolol. 06/03/19 -- Glucose reviewed on 06/03/19. Will stop lantus and change to mornng Levemir which will wear off before bedtime. Hold Nadolol. May need to cut back pain meds if BP remains soft. 06/04/19 --glucose reviewed on 06/04/2019. Glucose stable overnight. Glucose higher today so will advance the Levemir that he gets once in the morning. Will advance slowly and continue to monitor frequently. Nadolol on hold. Monitor blood pressure closely. May need to wean narcotics. 06/05/19 -- Glucose reviewed on 06/05/19 and has been climbing; we have been slowing advancing his Levemir. Talked with Chlorine Cells Operator and she recommended mealtime Novolog at 3U. Presumably diet to be changed just to nighttime TF. Will add the Novolog and see how he does with this. Would like to get him to minimal number of shots per day. BP reviewed on 06/05/19 and much better with Nadolol on hold. Continue to monitor. Subjective Interval history: Date of service: 06/05/19 49yo male here for rehab after extensive prolonged hospitalization and consulted for elevated glucose levels. Slept okay. No n/v. No Cp or SOB. Chronic abd pain unchagned. Eating better and asking about coming off the TF. Exam Narrative: Exam Narrative: Gen - NARD lying flat in bed Chest -clear to auscultation bilaterally. Normal respiratory rate. CV - RRR S1/S2 Abd - soft, ND, +BS. Mild diffuse tenderness but no guarding. GTube site clean
[2019-06-05 11:50] VITALS: BMI 14.4
[2019-06-05 12:04] LABS: Glucose Point of Care > 500 (65-105)
--- NOTE | 2019-06-05 12:10 | WPDNEURORHBP ---
Review of Systems Review of Systems: All systems reviewed & are unremarkable except as noted in HPI and below Functional Status Ambulation Ability Ability to Ambulate 10 Feet: Minimum Assistance X 1 Ability to Ambulate 50 Feet With 2 Turns: Minimum Assistance X 1 Ability to Ambulate 150 Feet: Minimum Assistance X 1 Ambulation Assistive Devices: Walker, Wheeled Transfers Ability Ability to Transfer In/Out of Chair: Independent Exam Const: General: comfortable Orientation/consciousness: oriented x3 Eyes: Pupils: PERRL EOM: EOM intact bilaterally Neck: Neck: full ROM Resp: Auscultation: clear to auscultation bilaterally Neuro: Cranial nerves: Yes CN's II-XII intact bilaterally Cognition (Neuro): normal cognition Speech: normal speech Gait exam (Neuro): normal gait Motor exam (neuro): strength 5/5 throughout Deep tendon reflexes (DTR's): Rt Triceps (C7): 1+, Lt Triceps (C7): 1+, Rt Biceps (C5, C6): 1+, Lt Biceps (C5, C6): 1+, Rt Brachioradialis (C6): 1+, Lt Brachioradialis (C6): 1+, Rt Patellar (L4): 1+, Lt Patellar (L4): 1+, Rt Ankle (S1): 0 and Lt Ankle (S1): 0 Plantar Reflex Responses: downgoing: bilateral Romberg Test: Positive Objective Data Vital Signs Vital Signs: Vital Signs - 24 hr 06/04/19 14:00 06/04/19 21:25 06/05/19 01:51 Temperature 36.6 C 36.7 C Pulse Rate 77 87 Respiratory Rate 16 16 Blood Pressure 103/61 92/61 L 98/56 L Pulse Oximetry 100 96 06/05/19 06:00 Temperature 36.3 C L Pulse Rate 76 Respiratory Rate 20 Blood Pressure 99/69 L Pulse Oximetry 98 Intake/Output Intake/Output: Intake & Output 06/02/19 06/03/19 06/04/19 06/05/19 23:59 23:59 23:59 23:59 Intake Total 1580 1270 1500 280 Balance 1580 1270 1500 280 Meds/Results Medications: Active Medications Generic Name Dose Route Start Last Admin Trade Name Freq PRN Reason Stop Dose Admin Al Hydrox/Mg Hydrox/Simethicone 30 ml 05/31/19 18:36 Mylanta PO Q4H PRN Heartburn Albuterol 2 puff 05/31/19 18:38 06/02/19 20:56 Proventil Hfa INHALATION 2 puff QIDRT PRN Administration Shortness Of Breath Albuterol 2 puff 06/02/19 10:52 Proventil Hfa INHALATION QIDRT PRN Shortness Of Breath Or Wheezing Lipase/Protease/Amylase 1 cap 05/31/19 18:[address] 12,000 Units Capsule PO PRN PRN snacks and meals Bisacodyl 5 mg 06/01/19 09:00 06/05/19 09:23 Dulcolax Tab PO 5 mg QAM TREASURE Administration Budesonide/Formoterol Fumarate 2 puff 05/31/19 20:00 06/04/19 19:58 Symbicort 160-4.5 Mcg (*Sp) Inhaler INHALATION 2 puff Q12HRT TREASURE Administration Dextrose 12.5 gm 05/31/19 19:02 Dextrose 50% Syringe IV PUSH PRN PRN Hypoglycemia Protocol Ergocalciferol 50,000 unit 06/06/19 09:00 Drisdol PO Tu@0900 TREASURE Ferrous Sulfate 324 mg 06/01/19 08:00 06/05/19 09:22 Ferrous Sulfate PO 324 mg DAILY@0800 TREASURE Administration Gabapentin 300 mg 05/31/19 21:25 06/05/19 09:23 Neurontin PO 300 mg TID TREASURE Administration Glucagon 1 mg 05/31/19 19:02 Glucagon For Inj IM PRN PRN Hypoglycemia Protocol Glucose 15 gm 05/31/19 19:02 06/02/19 06:09 Glutose 15 PO 15 gm PRN PRN Administration Hypoglycemia Protocol Dextrose 1,000 mls @ 100 mls/hr 05/31/19 19:02 Dextrose 5% 1,000 Ml IVPB PRN PRN Hypoglycemia Protocol Insulin Detemir 14 units 06/04/19 18:14 06/05/19 09:23 Levemir SUB-Q 14 units QAM TREASURE Administration Mirtazapine 30 mg 05/31/19 21:30 06/04/19 21:06 Remeron PO 30 mg HS TREASURE Administration Morphine Sulfate 30 mg 05/31/19 21:00 06/05/19 09:23 Ms Contin PO 30 mg Q12HR TREASURE Administration Nadolol 40 mg 06/01/19 09:00 06/02/19 10:27 Corgard PO 40 mg QAM TREASURE Administration Nicotine 1 patch 05/31/19 19:10 06/05/19 09:24 Nicoderm Cq 21 Mg TRANSDERM 1 patch QAM TREASURE Administration Ondansetron HCl
[2019-06-05] MEDS: INSULIN ASPART (*BKC) 100 UNITS/ML 8 UNITS SUB-Q (13:13)
[2019-06-05 14:00] VITALS: BP 107/73; PULSE 97; RESP 18; TEMP 36.6; O2SAT 100
[2019-06-05 15:00] LABS: Glucose Point of Care 338 (65-105)
[2019-06-05 16:12] LABS: Glucose Point of Care 225 (65-105)
[2019-06-05] MEDS: INSULIN ASPART (*BKC) 100 UNITS/ML SUB-Q ×2 (17:36→17:37)
[2019-06-05] MEDS: MIRTAZAPINE 30 MG TABLET PO (20:15)
[2019-06-05 20:27] LABS: Glucose Point of Care 79 (65-105)
[2019-06-05 22:00] VITALS: BP 85/53; PULSE 97; RESP 18; TEMP 37.6; O2SAT 98
[2019-06-06 02:38] LABS: Glucose Point of Care 100 (65-105)
[2019-06-06 06:00] VITALS: BP 95/59; PULSE 99; RESP 18; TEMP 38; O2SAT 98
[2019-06-06 06:45] LABS: Glucose Point of Care 207 (65-105)
[2019-06-06] MEDS: MORPHINE SULFATE 15 MG TABCR 30 MG PO (09:08)
[2019-06-06] MEDS: FERROUS SULFATE 324 MG TABLET PO (09:08)
[2019-06-06] MEDS: INSULIN DETEMIR 100 UNITS/ML 14 UNITS SUB-Q (09:09)
[2019-06-06] MEDS: INSULIN ASPART (*BKC) 100 UNITS/ML SUB-Q ×3 (09:10→12:36)
[2019-06-06] MEDS: BISACODYL 5 MG TABLET EC PO (09:11)
[2019-06-06] MEDS: GABAPENTIN 300 MG CAPSULE PO ×2 (09:12→12:35)
[2019-06-06] MEDS: PANTOPRAZOLE 40 MG TABLET PO (09:13)
[2019-06-06] MEDS: ERGOCALCIFEROL 50,000 UNIT CAPSULE 50000 UNITS PO (09:13)
--- NOTE | 2019-06-06 11:24 | PM.IMPN ---
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 Glucose reviewed on 06/06/2019. Glucose lower today but has been very labile. Now on scheduled mealtime insulin at 3 units along with Levemir at 14 units. Also has sliding scale. Will continue to monitor and adjust as needed. Received call from nursing at approximately 120 this afternoon. Patient noted to have low blood sugar of 45. Given oral juice and [place] crackers. Repeat glucose still low. Patient noted to be twitching. I did come to see patient. Nursing attempting to get IV access for IV dextrose. Patient definitely with twitching and somewhat agitated but able to speak to me in respond to his name. Rapid response called just prior being able to give IV dextrose through newly obtained IV access. Glucose continuing to remain low despite 2 full amps of IV dextrose as well as potential partial amp given although in question as initial IV infiltrated. D5 normal saline started. Discussed with environmental services tech. Will moved to ICU for further evaluation and treatment. Total time spent in critical care 45 minutes. (2) S/P percutaneous endoscopic gastrostomy (PEG) tube placement: Code(s): Z93.1 - Gastrostomy status Status: Acute Assessment and Plan: G tube in place. Tube feedings now switched to nighttime only. (3) Malnutrition: Qualifiers: Protein-calorie malnutrition severity: severe Malnutrition type: protein-calorie malnutrition Qualified Code(s): E43 - Unspecified severe protein-calorie malnutrition Code(s): E46 - Unspecified protein-calorie malnutrition Status: Acute Assessment and Plan: Probably multifactorial with multiple health issues. On tube feedings at night at this point. (4) Tobacco dependence: Code(s): F17.200 - Nicotine dependence, unspecified, uncomplicated Status: Acute Assessment and Plan: Cessation encouraged. Nicotine patch in place. (5) Chronic pancreatitis: Qualifiers: Pancreatitis type: alcohol induced Qualified Code(s): K86.0 - Alcohol-induced chronic pancreatitis Code(s): K86.1 - Other chronic pancreatitis Status: Acute Assessment and Plan: Known chronic pancreatitis. Will continue Creon. (6) H/O: HTN (hypertension): Code(s): Z86.79 - Personal history of other diseases of the circulatory system Status: Acute Assessment and Plan: Blood pressure reviewed on 06/06/2019 and stable. Has been on nadolol due to alcoholic cirrhosis but has been on hold. Will monitor. (7) GERD (gastroesophageal reflux disease): Qualifiers: Esophagitis presence: esophagitis presence not specified Qualified Code(s): K21.9 - Gastro-esophageal reflux disease without esophagitis Code(s): K21.9 - Gastro-esophageal reflux disease without esophagitis Status: Acute Assessment and Plan: Continue Protonix. (8) Depression: Qualifiers: Depression Type: unspecified Qualified Code(s): F32.9 - Major depressive disorder, single episode, unspecified Code(s): F32.9 - Major depressive disorder, single episode, unspecified Status: Acute Assessment and Plan: Mood stable. Continue Remeron. (9) COPD (chronic obstructive pulmonary disease): Qualifiers: COPD type: unspecified COPD Qualified Code(s): J44.9 - Chronic obstructive pulmonary disease, unspecified Code(s): J44.9 - Chronic obstructive pulmonary disease, unspecified Status: Acute Assessme
[2019-06-06 11:30] VITALS: TEMP 36.8
[2019-06-06 11:43] LABS: Glucose Point of Care 164 (65-105)
[2019-06-06 13:16] LABS: Glucose Point of Care 45 (65-105)
--- NOTE | 2019-06-06 13:38 | PCDIET ---
Nutrition Follow-Up Complete: Nutrition Diagnosis: Underweight related to history of significant weight loss as evidenced by BMI of 14.4. Nutrition Goal: Intakes >75%, tube feeding tolerance, glucose levels <150mg/dL Goal partly met. Patient consuming >75% of meals on regular diet and tolerating Glucerna 1. 2 @ 40mL/hr x 10 hours overnight. Taking Glucerna Shakes with meals. Blood glucose still not optimally controlled and medications being adjusted. Last recorded weight is 43 kg. Recommend obtaining new weight. Bowel Motility: Last documented bowel movement on 06/04/19. Labs Reviewed: Glu (164) Meds Noted: Protonix, Remeron, Novolog, Levemir, Proventil, Creon, Dulcolax, Drisdol, Ferrous Sulfate Additional Notes: Skin tear on coccyx. Nutrition Monitoring and Evaluation: Follow up every Wednesday/Wednesday.
--- NOTE | 2019-06-06 13:47 | WPDNEURORHBP ---
Subjective Interval history: earlier this morning during the team conference the patient was doing remarkably well quite with it and cooperative in spite of the fact the fluctuating blood sugars, this afternoon at least about 15 20 minutes ago the patient had a hypoglycemic episode needed in IV bolus of dextrose along with the other measures and came around rather slowly some mild clonus was noted however no generalized tonic-clonic seizures Review of Systems Review of Systems: All systems reviewed & are unremarkable except as noted in HPI and below Functional Status Ambulation Ability Ability to Ambulate 10 Feet: Independent Ability to Ambulate 50 Feet With 2 Turns: Independent Ability to Ambulate 150 Feet: Independent Ambulation Assistive Devices: Walker, Wheeled Transfers Ability Ability to Transfer In/Out of Chair: Independent Exam Const: General: comfortable and no acute distress HENMT: Other: removed Eyes: General: appearance normal, both eyes and all related structures Neck: Neck: supple and no JVD Resp: Effort & Inspection: normal respiratory effort Auscultation: clear to auscultation bilaterally Cardio: Rate: regular rate Rhythm: regular rhythm Skin: General skin exam: normal color and no rashes or lesions noted Neuro: Other: after a brief period of encephalopathy related to hypoglycemic episode the patient turned around and seemed to be doing much better than about half an hour ago we will continue present medical management along with the help of the hospitalist were informed about him rest of the management as before along with the PT OT earlier today we had discussed in the team conference and discharge planning was force June 17, 2019 with home exercise program however his diabetic management needs to be looked into more carefully prior to discharge Objective Data Vital Signs Vital Signs: Vital Signs - 24 hr 06/05/19 14:00 06/05/19 22:00 06/06/19 06:00 Temperature 36.6 C 37.6 C H 38.0 C H Pulse Rate 97 97 99 Respiratory Rate 18 18 18 Blood Pressure 107/73 85/53 L 95/59 L Pulse Oximetry 100 98 98 06/06/19 11:30 Temperature 36.8 C Pulse Rate Respiratory Rate Blood Pressure Pulse Oximetry Intake/Output Intake/Output: Intake & Output 06/03/19 06/04/19 06/05/19 06/06/19 23:59 23:59 23:59 23:59 Intake Total 1270 1500 970 340 Balance 1270 1500 970 340 Meds/Results Medications: Active Medications Generic Name Dose Route Start Last Admin Trade Name Freq PRN Reason Stop Dose Admin Al Hydrox/Mg Hydrox/Simethicone 30 ml 05/31/19 18:36 Mylanta PO Q4H PRN Heartburn Albuterol 2 puff 05/31/19 18:38 06/02/19 20:56 Proventil Hfa INHALATION 2 puff QIDRT PRN Administration Shortness Of Breath Albuterol 2 puff 06/02/19 10:52 Proventil Hfa INHALATION QIDRT PRN Shortness Of Breath Or Wheezing Lipase/Protease/Amylase 1 cap 05/31/19 18:[address] 12,000 Units Capsule PO PRN PRN snacks and meals Bisacodyl 5 mg 06/01/19 09:00 06/06/19 09:11 Dulcolax Tab PO 5 mg QAM TREASURE Administration Budesonide/Formoterol Fumarate 2 puff 05/31/19 20:00 06/06/19 09:34 Symbicort 160-4.5 Mcg (*Sp) Inhaler INHALATION 2 puff Q12HRT TREASURE Administration Dextrose 12.5 gm 05/31/19 19:02 Dextrose 50% Syringe IV PUSH PRN PRN Hypoglycemia Protocol Ergocalciferol 50,000 unit 06/06/19 09:00 06/06/19 09:13 Drisdol PO 50,000 unit Tu@0900 TREASURE Administration Ferrous Sulfate 324 mg 06/01/19 08:00 06/06/19 09:08 Ferrous Sulfate PO 324 mg DAILY@0800 TREASURE Administration Gabapentin 300 mg 05/31/19 21:25 06/06/19 12:35 Neurontin PO 300 mg TID TREASURE Administration Glucagon 1 mg 05/31/19 19:02 Glucagon For Inj IM PRN PRN Hypoglycemia Protocol Glucose 15 gm 05/31/19 19:02 06/02/19 06:09 Glutose 15 PO 15 gm PRN PRN Administration Hypoglycemia P
--- NOTE | 2019-06-06 14:00 | PC.NURSE ---
Message left to notify of rapid response call events and of transfer to ICU.
--- NOTE | 2019-06-06 14:05 | WPDINTPN ---
Progress Note: A&P Assessment and Plan (1) Hypoglycemia: Code(s): E16.2 - Hypoglycemia, unspecified Status: Acute Assessment and Plan: Pt received 3u of insulin aspart this AM and with lunch, and 14u of Levemir this AM. He appears to be an extraordinarily brittle diabetic. 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 We will hold his insulin for now and check q1h Accuchecks; he may require D5 or D10 infusion if he continues to drop. Check C-peptide and insulin levels. Check LFTs and serum glucose. (2) Diabetes mellitus: Qualifiers: Diabetes mellitus complication status: with hyperglycemia Diabetes mellitus fci insulin use: with fci use Diabetes mellitus type: type 2 Qualified Code(s): E11.65 - Type 2 diabetes mellitus with hyperglycemia; Z79.4 - longterm (current) use of insulin Code(s): E11.9 - Type 2 diabetes mellitus without complications Status: Acute Assessment and Plan: As above. (3) Alcoholic cirrhosis: Code(s): K70.30 - Alcoholic cirrhosis of liver without ascites Status: Acute (4) S/P percutaneous endoscopic gastrostomy (PEG) tube placement: Code(s): Z93.1 - Gastrostomy status Status: Acute (5) Depression: Code(s): F32.9 - Major depressive disorder, single episode, unspecified Status: Acute (6) CHF (congestive heart failure): Code(s): I50.9 - Heart failure, unspecified Status: Acute (7) GERD (gastroesophageal reflux disease): Code(s): K21.9 - Gastro-esophageal reflux disease without esophagitis Status: Acute (8) COPD (chronic obstructive pulmonary disease): Code(s): J44.9 - Chronic obstructive pulmonary disease, unspecified Status: Acute (9) Chronic pancreatitis: Code(s): K86.1 - Other chronic pancreatitis Status: Acute Assessment and Plan: Critical care time: 32 minutes. Subjective Interval history: Pt has had labile glucose and insulin was being adjusted. Over the past 24h, his glucose has ranged from 23-338. BILLING REP was called to Rehab for glucose of 23 despite 2 amps of D50 (1 amp likely wasn't absorbed as IV infiltrated). He was given another amp and glucose improved to 70. He was then given oral glucose gel. Transferred to ICU for frequent glucose monitoring. He does not recall the events of the last 30 minutes. His only complaint is of pain in the right arm from the infiltrated IV. Review of Systems Constitutional: Constitutional: Reports no additional constitutional complaints Eyes: Eyes: Reports no additional eye complaints ENT: Reports system reviewed and no additional complaints, except as documented Cardiovascular: Cardiovascular: Reports no additional cardiovascular complaints Respiratory: Respiratory: Reports no additional respiratory complaints Gastrointestinal: Gastrointestinal: Reports no additional gastrointestinal complaints Genitourinary: Genitourinary: Reports no additional male genitourinary complaints Musculoskeletal: Comments: right arm pain Integumentary/Breasts: Skin/Breast: Reports system reviewed and no additional complaints, except as docu Neurologic: Reports system reviewed and no additional complaints, except as documented Psychiatric: Psychiatric: Reports no additional psychiatric complaints Exam Const: General: no acute distress HENMT: Mouth: Yes dry mucous membranes Neck: Neck: supple Resp: Effort & Inspection: normal respiratory effort Auscultation: clear to auscultation bilaterally Cardio: Rate: regular rate Rhythm: regular rhythm GI: Inspection: non-distended GI Palp: Yes soft and No tender Auscultation: normal bowel sounds Other: PEG tube noted Skin: General skin exam: normal color Neuro: Speech: normal speech Motor exam (neuro): strength 5/5 throughout Other: AAOx3, occasional twitching Extrem: Right upper extremity: wrist (erythema a
--- NOTE | 2019-06-06 14:08 | PC.NURSE ---
Called to room by staff who report blood sugar dropped . Patient lethargic with mild jerking of neck, shoulders, and left arm noted. Current blood sugar 29 with patient drinking juice and eating marie crackers. Recheck while patient eating reflected blood sugar of 21 with patient less responsive. Rapid response call placed. Dr Gabriel and Dr Vargas notified and to bedside with rapid response team. IV inserted with #22 jelco afte 6 venipunctures. D 50 1 amp given IVP at 1333. recheck of blood sugar 25. 2nd amp given IVP as per Dr Vargas order at 1340. After 2nd med administered noted IV site infiltrated to elbow. Moderate edema noted. IV removed intact and right arm elevated with pillows and ice. Patient c/o pain to site. IV restarted to left forearm with one venipuncture and saline locked. 3rd amp d 50 given per orders at 1350. See rapid response intervention. All physicians aware of IV infiltration.
--- NOTE | 2019-06-06 14:14 | PC.NURSE ---
Transferred to ICU per bed with rapid response team and Dr Vargas and specialist managers. Blood sugar 70 prior to transfer.
[2019-06-06] MEDS: KETOROLAC 30 MG/ML VIAL (*BKC) IV PUSH (14:19)
[2019-06-06 14:20] LABS: Glucose Point of Care 29 (65-105)
[2019-06-06 14:20] LABS: Glucose Point of Care 31 (65-105)
[2019-06-06 14:20] LABS: Glucose Point of Care 36 (65-105)
[2019-06-06 14:20] LABS: Glucose Point of Care 23 (65-105)
[2019-06-06 14:21] LABS: Glucose Point of Care 24 (65-105)
[2019-06-06 14:21] LABS: Glucose Point of Care 25 (65-105)
[2019-06-06 14:21] LABS: Glucose Point of Care 70 (65-105)
--- NOTE | 2019-06-06 15:04 | PCOTNOTE ---
Attempted to see patient for afternoon OT session, but patient was groggy and not responding as he usually does. Nursing was notified and patient was found to have low blood sugar. Unable to work with patient in therapy at this time due to patient's current condition. RN notified.
--- NOTE | 2019-06-06 16:12 | PCPTNOTE ---
The patient treatment was not able to be completed on 06/06/2019 due to change of medical status patient transferred off unit. Patient did not receive full PT minutes this date.
[2019-06-07 13:09] LABS: Glucose Point of Care 152 (65-105)
[2019-06-07 13:10] LABS: Glucose Point of Care 101 (65-105)
--- NOTE | 2019-06-17 14:09 | PM.DS ---
DS: Diagnosis Admitting Diagnosis Admitting Diagnosis: Encephalopathy, unspecified Discharge Diagnosis (1) DVT prophylaxis: Code(s): Z29.9 - Encounter for prophylactic measures, unspecified Status: Acute (2) Hypoglycemia: Code(s): E16.2 - Hypoglycemia, unspecified Status: Acute (3) Hypomagnesemia: Code(s): E83.42 - Hypomagnesemia Status: Acute (4) Diabetes mellitus: Qualifiers: Diabetes mellitus type: type 2 Diabetes mellitus exterminator helper termite insulin use: with exterminator helper termite use Diabetes mellitus complication status: with hyperglycemia Qualified Code(s): E11.65 - Type 2 diabetes mellitus with hyperglycemia; Z79.4 - correction (current) use of insulin Code(s): E11.9 - Type 2 diabetes mellitus without complications Status: Acute (5) S/P percutaneous endoscopic gastrostomy (PEG) tube placement: Code(s): Z93.1 - Gastrostomy status Status: Acute (6) Malnutrition: Qualifiers: Malnutrition type: protein-calorie malnutrition Protein-calorie malnutrition severity: severe Qualified Code(s): E43 - Unspecified severe protein-calorie malnutrition Code(s): E46 - Unspecified protein-calorie malnutrition Status: Acute (7) Tobacco dependence: Code(s): F17.200 - Nicotine dependence, unspecified, uncomplicated Status: Acute (8) Chronic pancreatitis: Qualifiers: Pancreatitis type: alcohol induced Qualified Code(s): K86.0 - Alcohol-induced chronic pancreatitis Code(s): K86.1 - Other chronic pancreatitis Status: Acute (9) Chronic anemia: Code(s): D64.9 - Anemia, unspecified Status: Acute (10) H/O: HTN (hypertension): Code(s): Z86.79 - Personal history of other diseases of the circulatory system Status: Acute (11) GERD (gastroesophageal reflux disease): Qualifiers: Esophagitis presence: esophagitis presence not specified Qualified Code(s): K21.9 - Gastro-esophageal reflux disease without esophagitis Code(s): K21.9 - Gastro-esophageal reflux disease without esophagitis Status: Acute (12) Depression: Qualifiers: Depression Type: unspecified Qualified Code(s): F32.9 - Major depressive disorder, single episode, unspecified Code(s): F32.9 - Major depressive disorder, single episode, unspecified Status: Acute (13) COPD (chronic obstructive pulmonary disease): Qualifiers: COPD type: unspecified COPD Qualified Code(s): J44.9 - Chronic obstructive pulmonary disease, unspecified Code(s): J44.9 - Chronic obstructive pulmonary disease, unspecified Status: Acute (14) CHF (congestive heart failure): Qualifiers: Heart failure type: unspecified Heart failure chronicity: chronic Qualified Code(s): I50.9 - Heart failure, unspecified Code(s): I50.9 - Heart failure, unspecified Status: Acute (15) Alcoholic cirrhosis: Qualifiers: Ascites presence: without ascites Qualified Code(s): K70.30 - Alcoholic cirrhosis of liver without ascites Code(s): K70.30 - Alcoholic cirrhosis of liver without ascites Status: Acute (16) Hyperglycemia: Code(s): R73.9 - Hyperglycemia, unspecified Status: Acute DS: Summary Hospital Course Reason for hospitalization: The patient is a 49-year-old white male with past medical history of diabetes mellitus in the context of chronic alcoholic pancreatitis /insufficiency liver cirrhosis gastroesophageal reflux diseaseAnd the reason for hospitalization was encephalopathy related to hyper and hypoglycemia Hospital Course: patient had to be moved to the intensive care unit because of significant episodes of the hypoglycemia and then after couple of days he came back to a floor and was doing fairly well however again had to be moved out transferred to the intensive care unit. The patient had a gastrostomy tube however started eating fairly well
== END 2019-06-06 14:16 | disposition short-term general hospital (02) | DRG 71 ==
PROVIDERS: Family Medicine; Internal Medicine; Admitting Provider Psychiatry & Neurology Neurology; PCP Family Medicine; Visit Provider Psychiatry & Neurology Neurology
DX: G93.40 Encephalopathy, unspecified (principal); K86.0 Alcohol-induced chronic pancreatitis; K92.2 Gastrointestinal hemorrhage, unspecified; E46 Unspecified protein-calorie malnutrition; K86.81 Exocrine pancreatic insufficiency; D64.9 Anemia, unspecified; E11.42 Type 2 diabetes mellitus with diabetic polyneuropathy; E83.42 Hypomagnesemia; E11.649 Type 2 diabetes mellitus with hypoglycemia without coma; E11.65 Type 2 diabetes mellitus with hyperglycemia; F32.9 Major depressive disorder, single episode, unspecified; F17.210 Nicotine dependence, cigarettes, uncomplicated; I11.0 Hypertensive heart disease with heart failure; I50.9 Heart failure, unspecified; K70.30 Alcoholic cirrhosis of liver without ascites; K21.0 Gastro-esophageal reflux disease with esophagitis; J44.9 Chronic obstructive pulmonary disease, unspecified; Z93.1 Gastrostomy status; Z79.4 Long term (current) use of insulin
CPT/HCPCS: 36415; 36600; 71045; 80048; 81001; 82010; 82805; 82947; 83036; 83605; 83735; 84100; 84484; 85025; 85027; 87081; 87086; 94640; 97110; 97116; 97162; 97165; 97530; 97535; 97542; A9270; J1650; J1815; J1885; J3475; J7030